=== PATIENT | male | born 1945 | race Caucasian/White ===

== ENCOUNTER 2020-01-21 09:56 | Inpatient (IN) ==
[2020-01-21] MEDS ORDERED: APIXABAN 5 MG TABLET PO STA ×2 (10:19→10:43)
[2020-01-21 10:39] LABS: Basophils # 0.1 10*3/uL (0.0-0.2); Basophils % 0.5 % (0.0-0.8); Eosinophils # 0.1 10*3/uL (0.0-0.87); Eosinophils % 0.7 % (0.00-10.9); Hematocrit 40.8 VOL% (42.0-52.0); Hemoglobin 13.6 GM/DL (14.0-18.0); Immature Granulocytes % 1.1 %; Immature Granulocytes Absolute 0.11 #; Lymphocytes # 2.3 10*3/uL (1.4-4.0); Lymphocytes % 23.4 % (21.2-54.2); Mean Corpuscular HGB Conc 33.3 GM/DL (32-36); Mean Corpuscular Volume 85.7 FL (87-102); Mean Platelet Volume 9.6 FL (9.6-12.0); Monocytes % 7.8 % (1.7-12.7); Neutrophils % 66.5 % (38.7-73.9); Platelet Count 256 T/CUMM (130-400); Red Blood Count 4.76 MC/CUMM (3.8-5.5); Red Cell Distribution Width 17.1 % (9.3-17.3); White Blood Count 9.8 T/CUMM (4-12)
[2020-01-21] MEDS ORDERED: APIXABAN 5 MG TABLET ONE (10:41)
[2020-01-21 10:58] LABS: PT Patient Result 10.7 SECS (9.8-11.9)
[2020-01-21 10:59] LABS: Albumin 3.3 G/DL (3.4-5.0); Bilirubin,Total 0.5 MG/DL (0.2-1.0); Osmolality,Calculated 281.7 MOS/KG (273-304); Total Protein 7.3 G/DL (6.4-8.3)
[2020-01-21] MEDS ORDERED: DOCUSATE SODIUM 100 MG CAPSULE PO PRN (12:19)
[2020-01-21] MEDS ORDERED: BISACODYL 5 MG TABLET PO PRN (12:19)
[2020-01-21] MEDS ORDERED: PROMETHAZINE 25 MG/1 ML VIAL IM PRN (12:19)
[2020-01-21] MEDS ORDERED: DEXTROSE 50% 25 GM/50 ML VIAL IV PRN (12:19)
[2020-01-21] MEDS ORDERED: GLUCAGON 1 MG VIAL IM PRN (12:19)
[2020-01-21] MEDS ORDERED: ALBUTEROL/IPRATROPIUM 3 ML NEB RESP TX PRN (12:19)
[2020-01-21] MEDS ORDERED: ONDANSETRON 4 MG/2 ML VIAL IV PRN (12:19)
[2020-01-21] MEDS ORDERED: MORPHINE 4 MG/1 ML VIAL IV PRN (12:19)
[2020-01-21] MEDS ORDERED: hydrALAZINE 20 MG/1 ML VIAL IV PRN (13:18)
[2020-01-21] MEDS ORDERED: HEPARIN DRIP 25,000 UNITS/500 ML PREMIX IV SCH (13:30)
[2020-01-21] MEDS ORDERED: RIVAROXABAN 15 MG TABLET PO SCH (17:00)
[2020-01-22 05:22] LABS: Basophils # 0.1 10*3/uL (0.0-0.2); Basophils % 0.8 % (0.0-0.8); Eosinophils # 0.1 10*3/uL (0.0-0.87); Eosinophils % 1.1 % (0.00-10.9); Hematocrit 39.8 VOL% (42.0-52.0); Hemoglobin 13.3 GM/DL (14.0-18.0); Immature Granulocytes % 1.5 %; Immature Granulocytes Absolute 0.11 #; Lymphocytes # 1.8 10*3/uL (1.4-4.0); Lymphocytes % 25.7 % (21.2-54.2); Mean Corpuscular HGB Conc 33.4 GM/DL (32-36); Mean Corpuscular Volume 84.9 FL (87-102); Mean Platelet Volume 9.6 FL (9.6-12.0); Monocytes % 12.3 % (1.7-12.7); Neutrophils % 58.6 % (38.7-73.9); Platelet Count 232 T/CUMM (130-400); Red Blood Count 4.69 MC/CUMM (3.8-5.5); Red Cell Distribution Width 17.2 % (9.3-17.3); White Blood Count 7.2 T/CUMM (4-12)
[2020-01-22 05:42] LABS: INR 1.1
[2020-01-22 05:48] LABS: Albumin 2.9 G/DL (3.4-5.0); Bilirubin,Total 0.5 MG/DL (0.2-1.0); Calcium 9.6 MG/DL (8.5-10.1); Osmolality,Calculated 282.3 MOS/KG (273-304); Risk Ratio 4.22; Thyroid Stimulating Hormone 3.67 uIU/ml (0.358-3.74); Total Protein 6.6 G/DL (6.4-8.3)
[2020-01-22] MEDS ORDERED: atenoloL 25 MG TABLET PO SCH (09:00)
[2020-01-22] MEDS ORDERED: PANTOPRAZOLE 40 MG TABLET PO SCH (09:00)
[2020-01-22] MEDS ORDERED: DIAZEPAM 5 MG TABLET PO ONE (12:16)
[2020-01-22 16:18] VITALS: BP 129/69
[2020-01-22] MEDS ORDERED: RIVAROXABAN 15 MG TABLET PO SCH (17:00)
[2020-01-22] MEDS ORDERED: APIXABAN 5 MG TABLET PO SCH (21:00)
== END 2020-01-22 18:42 | disposition home or self-care (01) | DRG 176 ==
LOC: N.ED 09:56 → N.EDINP 11:48 → N.TELEN 13:23
PROVIDERS: ADMIT Internal Medicine; ATTEND Internal Medicine

== ENCOUNTER 2020-02-17 19:03 | Inpatient (IN) ==
[2020-02-17] MEDS ORDERED: SODIUM CHLORIDE 0.9% 1,000 ML IV STA (19:40)
[2020-02-17 20:09] LABS: Basophils % 0.5 % (0.0-0.8); Eosinophils # 0.1 10*3/uL (0.0-0.87); Eosinophils % 1.4 % (0.00-10.9); Hematocrit 42.7 VOL% (42.0-52.0); Hemoglobin 13.8 GM/DL (14.0-18.0); Immature Granulocytes % 0.7 %; Immature Granulocytes Absolute 0.06 #; Lymphocytes # 1.2 10*3/uL (1.4-4.0); Lymphocytes % 14.1 % (21.2-54.2); Mean Corpuscular HGB Conc 32.3 GM/DL (32-36); Mean Corpuscular Volume 86.6 FL (87-102); Mean Platelet Volume 9.4 FL (9.6-12.0); Monocytes % 10.3 % (1.7-12.7); Platelet Count 224 T/CUMM (130-400); Red Blood Count 4.93 MC/CUMM (3.8-5.5); Red Cell Distribution Width 16.7 % (9.3-17.3); White Blood Count 8.6 T/CUMM (4-12)
[2020-02-17 20:21] LABS: INR 1.2; PT Patient Result 12.4 SECS (9.8-11.9); Partial Thromboplastin Time 31.7 SECS (23.9-33.8)
[2020-02-17 20:30] LABS: Ferritin 1109.4 ng/ml (26-388); Troponin I < 0.015 NG/ML (0.00-0.045)
[2020-02-17 20:37] LABS: Alanine Aminotransferase 20 U/L (16-61); Albumin 3.3 G/DL (3.4-5.0); Alkaline Phosphatase 85 U/L (45-117); Aspartate Amino Transferase 19 U/L (0-37); Blood Urea Nitrogen 14 MG/DL (7-18); Calcium 10.1 MG/DL (8.5-10.1); Estimated Glom Filtration Rate 56 ML/MIN; Glucose 104 MG/DL (74-106); Osmolality,Calculated 281.3 MOS/KG (273-304); Total Protein 7.8 G/DL (6.4-8.3)
[2020-02-17] MEDS ORDERED: cefTRIAXone 1,000 MG in SODIUM CHLORIDE 0.9% 100 ML IV STA (21:12)
[2020-02-17] MEDS ORDERED: ACETAMINOPHEN 500 MG TABLET PO ONE (23:30)
[2020-02-17] MEDS ORDERED: HYDROCORTISONE 10 MG TABLET PO SCH (23:45)
[2020-02-17] MEDS ORDERED: ACETAMINOPHEN/CODEINE 300-30 MG TABLET PO PRN (23:55)
[2020-02-18] MEDS ORDERED: MAGNESIUM SULF RIDER 4 GM in PREMIX 1 EACH IV PRN (00:02)
[2020-02-18] MEDS ORDERED: POTASSIUM CHLORIDE 20 MEQ TABLET PO PRN (00:02)
[2020-02-18] MEDS ORDERED: MAGNESIUM SULF RIDER 2 GM in PREMIX 1 EACH IV PRN (00:02)
[2020-02-18] MEDS ORDERED: DOCUSATE SODIUM 100 MG CAPSULE PO PRN (00:09)
[2020-02-18] MEDS ORDERED: GLUCAGON 1 MG VIAL IM PRN (00:09)
[2020-02-18] MEDS ORDERED: DEXTROSE 50% 25 GM/50 ML VIAL IV PRN (00:09)
[2020-02-18] MEDS ORDERED: ACETAMINOPHEN 325 MG TABLET PO PRN (00:09)
[2020-02-18] MEDS ORDERED: hydrALAZINE 20 MG/1 ML VIAL IV PRN (00:09)
[2020-02-18] MEDS ORDERED: ONDANSETRON 4 MG/2 ML VIAL IV PRN (00:09)
[2020-02-18] MEDS ORDERED: cefTRIAXone 2,000 MG in SODIUM CHLORIDE 0.9% 100 ML IV SCH (00:30)
[2020-02-18 00:46] LABS: Bacteria,Urine Occasional /HPF (Few); Bilirubin,Urine Negative (Negative); Blood, Urine Negative (Negative); Glucose,Urine (UA) Negative (Negative); Ketones,Urine Negative (Negative); Mucus,Urine Occasional /LPF (Occasional); Nitrite,Urine Negative (Negative); Protein,Urine Negative; RBC,Urine <1 /HPF (0-4); Urine Appearance CLEAR (Clear); Urine Color Yellow (Yellow); Urine Specific Gravity 1.016 (1.001-1.035); Urine Urobilinogen < 2.0 EU/DL (0.2-1.0); WBC,Urine 1 /HPF (0-6)
[2020-02-18] MEDS: atenoloL 25 MG TABLET PO SCH ×3 (00:52→22:53)
[2020-02-18] MEDS: APIXABAN 5 MG TABLET PO SCH ×3 (00:52→22:52)
[2020-02-18] MEDS: AZITHROMYCIN INJ 500 MG in SODIUM CHLORIDE 0.9% 250 ML IV SCH (00:52)
[2020-02-18] MEDS: ALBUTEROL INHALER 18 GM INH SCH ×4 (01:33→18:38)
[2020-02-18 05:25] LABS: Basophils % 0.6 % (0.0-0.8); Eosinophils # 0.1 10*3/uL (0.0-0.87); Immature Granulocytes % 0.6 %; Immature Granulocytes Absolute 0.04 #; Lymphocytes # 0.8 10*3/uL (1.4-4.0); Lymphocytes % 12.1 % (21.2-54.2); Mean Corpuscular HGB Conc 32.7 GM/DL (32-36); Mean Corpuscular Volume 85.7 FL (87-102); Mean Platelet Volume 9.4 FL (9.6-12.0); Neutrophils % 68.7 % (38.7-73.9); Red Cell Distribution Width 16.6 % (9.3-17.3); White Blood Count 6.9 T/CUMM (4-12)
[2020-02-18 05:51] LABS: Osmolality,Calculated 280.4 MOS/KG (273-304)
[2020-02-18 05:56] LABS: Hemoglobin 10.8 GM/DL (14.0-18.0); Platelet Count 173 T/CUMM (130-400); Red Blood Count 3.85 MC/CUMM (3.8-5.5)
[2020-02-18 06:20] LABS: Eosinophils 2 % (0-10); Hypochromasia 1+; Lymphocytes 6 % (20-55); Microcytosis 1+; Nucleated Red Blood Cells 1 (0-5); Platelet Estimate Adequate; Segmented Neutrophils 72 % (50-85); Total Cells Counted 100
[2020-02-18] MEDS: CETIRIZINE 10 MG TABLET PO SCH (08:12)
[2020-02-18] MEDS: CHOLECALCIFEROL 1,000 UNIT TABLET PO SCH (08:12)
[2020-02-18] MEDS: ASCORBIC ACID 500 MG TABLET PO SCH (08:12)
[2020-02-18] MEDS: PANTOPRAZOLE 40 MG TABLET PO SCH (08:15)
[2020-02-18] MEDS: OMEGA 3 ACID ETHYL ESTERS 1 GM CAPSULE PO SCH (08:15)
[2020-02-18] MEDS: allopurinoL 300 MG TABLET PO SCH (08:16)
[2020-02-18] MEDS: FOLIC ACID 1 MG TABLET PO SCH (08:16)
[2020-02-18] MEDS ORDERED: HYDROCORTISONE 10 MG TABLET PO SCH (09:00)
[2020-02-18] MEDS ORDERED: MAGNESIUM SULF RIDER 2 GM in PREMIX 1 EACH IV ONE (09:53)
[2020-02-18] MEDS: ZINC SULFATE 220 MG CAPSULE PO SCH (11:37)
[2020-02-18] MEDS: HYDROCORTISONE 10 MG TABLET PO SCH ×2 (16:32→22:53)
[2020-02-18] MEDS: MONTELUKAST 10 MG TABLET PO SCH (18:39)
[2020-02-18] MEDS: cefTRIAXone 2,000 MG in SYRINGE 1 EACH IV SCH (22:52)
[2020-02-19] MEDS: AZITHROMYCIN INJ 500 MG in SODIUM CHLORIDE 0.9% 250 ML IV SCH (00:42)
[2020-02-19] MEDS: ALBUTEROL INHALER 18 GM INH SCH ×4 (01:50→18:22)
[2020-02-19] MEDS: HYDROCORTISONE 10 MG TABLET PO SCH ×3 (04:38→17:35)
[2020-02-19 06:55] LABS: Basophils % 0.3 % (0.0-0.8); Hematocrit 33.6 VOL% (42.0-52.0); Hemoglobin 10.9 GM/DL (14.0-18.0); Immature Granulocytes % 0.6 %; Immature Granulocytes Absolute 0.02 #; Lymphocytes # 0.9 10*3/uL (1.4-4.0); Lymphocytes % 24.2 % (21.2-54.2); Mean Corpuscular HGB Conc 32.4 GM/DL (32-36); Mean Platelet Volume 9.8 FL (9.6-12.0); Monocytes % 8.9 % (1.7-12.7); Platelet Count 165 T/CUMM (130-400); Red Blood Count 3.86 MC/CUMM (3.8-5.5); Red Cell Distribution Width 16.5 % (9.3-17.3); White Blood Count 3.6 T/CUMM (4-12)
[2020-02-19 07:16] LABS: Calcium 8.8 MG/DL (8.5-10.1); Osmolality,Calculated 287.8 MOS/KG (273-304)
[2020-02-19] MEDS: CETIRIZINE 10 MG TABLET PO SCH (09:20)
[2020-02-19] MEDS: atenoloL 25 MG TABLET PO SCH ×2 (09:21→21:25)
[2020-02-19] MEDS: OMEGA 3 ACID ETHYL ESTERS 1 GM CAPSULE PO SCH (09:21)
[2020-02-19] MEDS: FOLIC ACID 1 MG TABLET PO SCH (09:21)
[2020-02-19] MEDS: allopurinoL 300 MG TABLET PO SCH (09:21)
[2020-02-19] MEDS: APIXABAN 5 MG TABLET PO SCH ×2 (09:21→21:25)
[2020-02-19] MEDS: PANTOPRAZOLE 40 MG TABLET PO SCH (09:21)
[2020-02-19] MEDS: ASCORBIC ACID 500 MG TABLET PO SCH (09:21)
[2020-02-19] MEDS: CHOLECALCIFEROL 1,000 UNIT TABLET PO SCH (09:21)
[2020-02-19] MEDS: MONTELUKAST 10 MG TABLET PO SCH (18:22)
[2020-02-19] MEDS: cefTRIAXone 2,000 MG in SYRINGE 1 EACH IV SCH (21:25)
[2020-02-20] MEDS: ALBUTEROL INHALER 18 GM INH SCH ×4 (00:15→18:08)
[2020-02-20] MEDS: AZITHROMYCIN INJ 500 MG in SODIUM CHLORIDE 0.9% 250 ML IV SCH (00:15)
[2020-02-20] MEDS: HYDROCORTISONE 10 MG TABLET PO SCH ×4 (00:15→17:02)
[2020-02-20 06:40] LABS: Hematocrit 33.5 VOL% (42.0-52.0); Hemoglobin 10.8 GM/DL (14.0-18.0); Immature Granulocytes % 0.6 %; Immature Granulocytes Absolute 0.03 #; Lymphocytes # 0.9 10*3/uL (1.4-4.0); Lymphocytes % 16.7 % (21.2-54.2); Mean Corpuscular HGB Conc 32.2 GM/DL (32-36); Mean Corpuscular Volume 86.3 FL (87-102); Mean Platelet Volume 9.8 FL (9.6-12.0); Monocytes % 5.6 % (1.7-12.7); Neutrophils % 77.1 % (38.7-73.9); Platelet Count 171 T/CUMM (130-400); Red Blood Count 3.88 MC/CUMM (3.8-5.5); Red Cell Distribution Width 16.1 % (9.3-17.3); White Blood Count 5.2 T/CUMM (4-12)
[2020-02-20] MEDS: OMEGA 3 ACID ETHYL ESTERS 1 GM CAPSULE PO SCH (08:20)
[2020-02-20] MEDS: APIXABAN 5 MG TABLET PO SCH ×2 (08:20→20:57)
[2020-02-20] MEDS: CETIRIZINE 10 MG TABLET PO SCH (08:20)
[2020-02-20] MEDS: allopurinoL 300 MG TABLET PO SCH (08:21)
[2020-02-20] MEDS: atenoloL 25 MG TABLET PO SCH ×2 (08:21→21:01)
[2020-02-20] MEDS: PANTOPRAZOLE 40 MG TABLET PO SCH (08:21)
[2020-02-20] MEDS: CHOLECALCIFEROL 1,000 UNIT TABLET PO SCH (08:21)
[2020-02-20] MEDS: ASCORBIC ACID 500 MG TABLET PO SCH (08:21)
[2020-02-20] MEDS: FOLIC ACID 1 MG TABLET PO SCH (08:21)
[2020-02-20] MEDS: ZINC SULFATE 220 MG CAPSULE PO SCH (08:21)
[2020-02-20] MEDS: MONTELUKAST 10 MG TABLET PO SCH (18:08)
[2020-02-20] MEDS: cefTRIAXone 2,000 MG in SYRINGE 1 EACH IV SCH (21:01)
[2020-02-21] MEDS: AZITHROMYCIN INJ 500 MG in SODIUM CHLORIDE 0.9% 250 ML IV SCH (00:15)
[2020-02-21] MEDS: HYDROCORTISONE 10 MG TABLET PO SCH ×3 (00:15→10:55)
[2020-02-21] MEDS: ALBUTEROL INHALER 18 GM INH SCH ×3 (00:47→12:07)
[2020-02-21] MEDS: OMEGA 3 ACID ETHYL ESTERS 1 GM CAPSULE PO SCH (09:18)
[2020-02-21] MEDS: CHOLECALCIFEROL 1,000 UNIT TABLET PO SCH (09:18)
[2020-02-21] MEDS: allopurinoL 300 MG TABLET PO SCH (09:18)
[2020-02-21] MEDS: ASCORBIC ACID 500 MG TABLET PO SCH (09:18)
[2020-02-21] MEDS: FOLIC ACID 1 MG TABLET PO SCH (09:19)
[2020-02-21] MEDS: CETIRIZINE 10 MG TABLET PO SCH (09:19)
[2020-02-21] MEDS: PANTOPRAZOLE 40 MG TABLET PO SCH (09:19)
[2020-02-21] MEDS: atenoloL 25 MG TABLET PO SCH (09:19)
[2020-02-21] MEDS: APIXABAN 5 MG TABLET PO SCH (09:19)
[2020-02-21] MEDS ORDERED: POTASSIUM CHLORIDE 20 MEQ TABLET PO ONE (09:59)
[2020-02-21 11:16] VITALS: BP 127/87
== END 2020-02-21 12:23 | disposition home or self-care (01) | DRG 177 ==
LOC: N.ED 19:03 → N.EDINP 19:03 → N.2E 22:53
PROVIDERS: ADMIT Internal Medicine; ATTEND Internal Medicine